=== PATIENT | female | born 1975 | race Caucasian/White ===

== ENCOUNTER 2018-12-31 21:45 | Emergency (ER) | payer SELFPAY ==
[~2018-12-31] VITALS: Ht 162.6 cm; Wt 72.0 kg
[2018-12-31] MEDS ORDERED: ONDANSETRON ODT 4 MG ONE (22:02)
[2018-12-31] MEDS ORDERED: ONDANSETRON 4 MG TABLET PO PRN (22:30)
--- NOTE | 2018-12-31 22:40 | NUR ---
SITTING UP, TAKING PO FLUIDS AND TOLERATING WELL, AND MOTHER AT BEDSIDE. PT REMAISN NSR WITHOUT ECTOPY, NAD.
[2018-12-31 23:05] VITALS: BP 112/68
--- NOTE | 2018-12-31 23:05 | NUR ---
PT AMBULATORY WITH STEADY GAIT IN HALLWAY TO BATHROOM, NAD AT THIS TIME, FEELING BETTER, DC INSTRUCTIONS GIVEN.
== END 2018-12-31 23:12 | disposition home or self-care (01) ==
LOC: ED 22:50
DX: R55 Syncope and collapse (principal)
CPT/HCPCS: 93005; 99283; Q0162